=== PATIENT | female | born 1955 | race Caucasian/White ===

== ENCOUNTER 2021-10-13 05:30 | Day surgery (SDC) | payer OTHER, MEDICAID ==
[2021-10-12 09:26] LABS: COVID AG,FIA SOURCE NASOPHARYNGEAL
[~2021-10-13] VITALS: Ht 167.6 cm; Wt 78.2 kg
[~2021-10-13 05:30] MED LIST: RINGERS SOLUTION,LACTATED 500 ML IV ONE
[2021-10-13] MEDS ORDERED: CHONDR SULF A SOD/HYALURONATE 1.05 ML KIT IO ONE (05:31)
[2021-10-13] MEDS ORDERED: NEOMYCIN/POLYMYXIN B/DEXAMETH 3.5 GM OPHTHALMIC OINTMENT OD ONE (05:31)
[2021-10-13] MEDS ORDERED: LIDOCAINE/PF 1% 2 ML VIAL CAUDAL ONE (05:31)
[2021-10-13] MEDS ORDERED: EPINEPHrine 1:1,000 [1 MG/ML] VIAL ET ONE (05:31)
[2021-10-13] MEDS ORDERED: FentaNYL CITRATE PF 100 MCG/2 ML VIAL IVP ONE (05:31)
[2021-10-13] MEDS ORDERED: BALANCED SALT 15 ML OPHTHALMIC IRRIG.SOLN IO ONE (05:31)
[2021-10-13] MEDS ORDERED: BUPIVACAINE HCL/PF 0.75% 10 ML VIAL CAUDAL ONE (05:31)
[2021-10-13] MEDS ORDERED: POVIDONE-IODINE 10% 15 ML SOLUTION UD TP ONE (05:31)
[2021-10-13] MEDS ORDERED: TETRACAINE HCL/PF 0.5% 4 ML OPHTHALMIC SOLUTION OD ONE (05:31)
[2021-10-13] MEDS ORDERED: MIDAZOLAM HCL 2 MG/2 ML VIAL IVP ONE (05:31)
[2021-10-13] MEDS ORDERED: HYALURONIDASE, HUMAN RECOMB. 150 UNITS/ML ID ONE (05:31)
[2021-10-13] MEDS ORDERED: MOXIFLOXACIN HCL 0.5% 3 ML OPHTHALMIC SOLUTION ONE (05:33)
[2021-10-13] MEDS ORDERED: KETOROLAC TROMETHAMINE 0.5% 5 ML OPHTHALMIC SOLUTION ONE (05:33)
[2021-10-13] MEDS ORDERED: PHENYLEPHRINE HCL 2.5% 2 ML OPHTHALMIC SOLUTION ONE (05:33)
[2021-10-13] MEDS ORDERED: RINGERS SOLUTION,LACTATED 500 ML IV ONE (05:33)
[2021-10-13] MEDS ORDERED: TROPICAMIDE 1% 2 ML OPHTHALMIC SOLUTION ONE (05:33)
[2021-10-13] MEDS ORDERED: CETI1SOL83 PO (06:16)
[2021-10-13] MEDS ORDERED: BECL10.62 IH (06:16)
[2021-10-13] MEDS: MOXIFLOXACIN HCL 0.5% 3 ML OPHTHALMIC SOLUTION OS SCH ×3 (06:17→06:30)
[2021-10-13] MEDS: PHENYLEPHRINE HCL 2.5% 2 ML OPHTHALMIC SOLUTION OS SCH ×3 (06:17→06:30)
[2021-10-13] MEDS: KETOROLAC TROMETHAMINE 0.5% 5 ML OPHTHALMIC SOLUTION OS SCH ×3 (06:17→06:30)
[2021-10-13] MEDS: TROPICAMIDE 1% 2 ML OPHTHALMIC SOLUTION OS SCH ×3 (06:17→06:31)
[2021-10-13] MEDS ORDERED: CHOL25TA4 PO (06:30)
[2021-10-13] MEDS ORDERED: FURO20 PO (06:30)
[2021-10-13] MEDS ORDERED: LISI-893 PO (06:30)
[2021-10-13] MEDS ORDERED: LIDOCAINE/PF 1% 2 ML VIAL ONE ×2 (06:32→06:38)
[2021-10-13] MEDS ORDERED: SODIUM CHLORIDE 0.9% 0 ML ONE (06:32)
[2021-10-13] MEDS ORDERED: BUPIVACAINE HCL/PF 0.75% 10 ML VIAL ONE (06:32)
[2021-10-13] MEDS ORDERED: NEOMYCIN/POLYMYXIN B/DEXAMETH 3.5 GM OPHTHALMIC OINTMENT ONE (06:32)
[2021-10-13] MEDS ORDERED: DEXAMETHASONE SOD PHOS 4 MG/ML VIAL ONE (06:32)
[2021-10-13] MEDS ORDERED: HYALURONIDASE, HUMAN RECOMB. 150 UNITS/ML ONE (06:33)
[2021-10-13] MEDS ORDERED: PANT-31 PO (06:36)
[2021-10-13] MEDS ORDERED: TIOT185 IH (06:36)
[2021-10-13] MEDS ORDERED: PREG75 PO (06:36)
[2021-10-13] MEDS ORDERED: METO-558 PO (06:36)
[2021-10-13] MEDS ORDERED: PrednisoLONE ACETATE 1% 5 ML OPHTHALMIC SUSPENSION ONE (06:36)
[2021-10-13] MEDS ORDERED: MONT-35 PO (06:36)
[2021-10-13] MEDS ORDERED: METH1POW MC (06:36)
[2021-10-13] MEDS ORDERED: ROSU20TA73 PO (06:36)
[2021-10-13] MEDS ORDERED: EPINEPHrine 1:1,000 [1 MG/ML] VIAL ONE (06:39)
[2021-10-13] MEDS ORDERED: TETRACAINE HCL/PF 0.5% 4 ML OPHTHALMIC SOLUTION ONE (06:39)
[2021-10-13 07:26] LABS: GLUCOMETER DEV NAME(LOC) SDS.; GLUCOSE,POINT OF CARE 105 MG/DL (70-110)
== END 2021-10-13 09:10 | disposition home or self-care (01) ==
LOC: SURGERY 05:30
PROVIDERS: ATTEND Ophthalmology
DX: H25.12 Age-related nuclear cataract, left eye (principal); I10 Essential (primary) hypertension; E78.5 Hyperlipidemia, unspecified; J44.9 Chronic obstructive pulmonary disease, unspecified; H40.1131 Primary open-angle glaucoma, bilateral, mild stage; H04.123 Dry eye syndrome of bilateral lacrimal glands; Z79.899 Other long term (current) drug therapy; Z88.0 Allergy status to penicillin
CPT/HCPCS: 87426; 93005; 66991; 82962; C9803; J3490 ×2; J0171; J3010; J2250; Q9967; J7120; J3473; V2632; J0690; J1100

== ENCOUNTER 2021-12-15 05:13 | Day surgery (SDC) | payer OTHER, MEDICAID ==
[2021-12-14 09:44] LABS: COVID AG,FIA SOURCE NASAL SWAB
[~2021-12-15] VITALS: Ht 167.6 cm; Wt 60.8 kg
[~2021-12-15 05:13] MED LIST changes: +ALBU8HFA IH; +BECL10.62 IH; +CETI-450 PO; +CHOL25TA4 PO; +FURO20 PO; +LISI-893 PO; +METH479P3 PO; +METO-558 PO; +MONT-35 PO; +PANT-31 PO; +PREG75 PO; -RINGERS SOLUTION,LACTATED 500 ML IV ONE; +ROSU20TA73 PO; +TIOT185 IH
[2021-12-15] MEDS ORDERED: EPINEPHrine 1:1,000 [1 MG/ML] VIAL IM ONE (05:14)
[2021-12-15] MEDS ORDERED: LIDOCAINE/PF 1% 2 ML VIAL IM ONE (05:14)
[2021-12-15] MEDS ORDERED: TETRACAINE HCL/PF 0.5% 4 ML OPHTHALMIC SOLUTION OS ONE (05:14)
[2021-12-15] MEDS ORDERED: BALANCED SALT 15 ML OPHTHALMIC IRRIG.SOLN OD ONE (05:14)
[2021-12-15] MEDS ORDERED: CHONDR SULF A SOD/HYALURONATE 1.05 ML KIT IO ONE (05:14)
[2021-12-15] MEDS ORDERED: POVIDONE-IODINE 5% 30 ML OPHTHALMIC SOLUTION OS ONE (05:14)
[2021-12-15] MEDS ORDERED: RINGERS SOLUTION,LACTATED 500 ML IV ONE (05:30)
[2021-12-15] MEDS ORDERED: KETOROLAC TROMETHAMINE 0.5% 5 ML OPHTHALMIC SOLUTION ONE (06:36)
[2021-12-15] MEDS ORDERED: MOXIFLOXACIN HCL 0.5% 3 ML OPHTHALMIC SOLUTION ONE (06:36)
[2021-12-15] MEDS ORDERED: TROPICAMIDE 1% 2 ML OPHTHALMIC SOLUTION ONE (06:36)
[2021-12-15] MEDS ORDERED: PHENYLEPHRINE HCL 2.5% 2 ML OPHTHALMIC SOLUTION ONE (06:37)
[2021-12-15] MEDS: MOXIFLOXACIN HCL 0.5% 3 ML OPHTHALMIC SOLUTION OD SCH ×3 (06:42→06:57)
[2021-12-15] MEDS: TROPICAMIDE 1% 2 ML OPHTHALMIC SOLUTION OD SCH ×3 (06:42→06:57)
[2021-12-15] MEDS: KETOROLAC TROMETHAMINE 0.5% 5 ML OPHTHALMIC SOLUTION OD SCH ×3 (06:42→06:57)
[2021-12-15] MEDS: PHENYLEPHRINE HCL 2.5% 2 ML OPHTHALMIC SOLUTION OD SCH ×3 (06:42→06:57)
[2021-12-15] MEDS ORDERED: FentaNYL CITRATE PF 100 MCG/2 ML VIAL IVP ONE (12:00)
[2021-12-15] MEDS ORDERED: MIDAZOLAM HCL 2 MG/2 ML VIAL IVP ONE (12:00)
== END 2021-12-15 09:00 | disposition home or self-care (01) ==
LOC: SURGERY 05:13
PROVIDERS: ATTEND Ophthalmology
DX: E11.36 Type 2 diabetes mellitus with diabetic cataract (principal); H25.11 Age-related nuclear cataract, right eye; I10 Essential (primary) hypertension; J44.9 Chronic obstructive pulmonary disease, unspecified; Z20.822 Contact with and (suspected) exposure to COVID-19; Z79.899 Other long term (current) drug therapy; Z88.0 Allergy status to penicillin
CPT/HCPCS: 87426; 66984; C9803; J0171; J3010; J3490; J2250; Q9967; V2632